=== PATIENT | female | born 1985 | race Caucasian/White ===

== ENCOUNTER 2017-04-20 16:01 | Emergency (ER) | payer OTHER ==
[2017-04-20 16:20] VITALS: BP 120/52
--- NOTE | 2017-04-20 16:42 | UC ---
Hand/Wrist HPI - HPI Summary HPI Summary: FOUR WEEKS OF BILATERAL HAND PAIN, WORSENING OVER TIME. HISTORY OF TENDONITIS, PLANTAR FASCIITIS. BOUGHT NEW HOUSE AND HAS BEEN DOING FREQUENT HOME REPAIRS, PAIN WORSENING. - History Of Current Complaint Chief Complaint: UCUpperExtremity Stated Complaint: HAND COMPLAINT Time Seen by Provider: 04/20/17 16:08 Hx Obtained From: Patient Hx Last Menstrual Period: 03/26/17 Onset/Duration: Gradual Onset, Lasting Weeks, Still Present Severity Initially: Mild Severity Currently: Moderate Character Of Pain: Dull, Aching Aggravating Factor(s): Movement, Lifting, Flexion, Extension Alleviating: Nothing Associated Signs And Symptoms: Positive: Negative Related History: Dominant Hand Left - Allergies/Home Medications Allergies/Adverse Reactions: Allergies Allergy/AdvReac Type Severity Reaction Status Date / Time No Known Allergies Allergy Verified 04/20/17 16:07 Home Medications: Home Medications Amoxicillin CAP* [Amoxicillin 500 MG CAP*] 2 cap BID 04/20/17 [History Confirmed 04/20/17] Levofloxacin TAB* [Levaquin TAB*] 500 mg PO BID 04/20/17 [History Confirmed ] Pantoprazole TAB (NF) [Protonix TAB (NF)] 40 mg PO BID 04/20/17 [History Confirmed 04/20/17] PMH/Surg Hx/FS Hx/Imm Hx Previously Healthy: Yes Cardiovascular History Of: Reports: Hypertension - not on meds - Surgical History Surgical History: None - Family History Known Family History: Negative: Blood Disorder - Social History Occupation: Unemployed Lives: With Family Alcohol Use: Occasionally Substance Use Type: Marijuana Substance Use Comment - Amount & Last Used: "here and there, occasionally" Smoking Status (MU): Current Every Day Smoker Amount Used/How Often: 1/2 ppd Cessation Counseling: Patient Advised to Stop - Immunization History Most Recent Influenza Vaccination: 2016 Most Recent Tetanus Shot: UTD Most Recent Pneumonia Vaccination: NONE Review of Systems Constitutional: Negative Skin: Negative Eyes: Negative ENT: Negative Respiratory: Negative Cardiovascular: Negative Gastrointestinal: Negative Genitourinary: Negative Motor: Negative Neurovascular: Negative Musculoskeletal: Arthralgia, Myalgia Neurological: Negative Psychological: Negative All Other Systems Reviewed And Are Negative: Yes Physical Exam Triage Information Reviewed: Yes Appearance: Well-Appearing, No Pain Distress, Well-Nourished Vital Signs: Initial Vital Signs Temp 98.9 F 04/20/17 16:10 Pulse 88 04/20/17 16:10 Resp 16 04/20/17 16:10 BP 120/52 04/20/17 16:10 Pulse Ox 100 04/20/17 16:10 Vital Signs Reviewed: Yes Eye Exam: Normal ENT Exam: Normal ENT: Positive: Normal ENT inspection, Hearing grossly normal, TMs normal Dental Exam: Normal Neck exam: Normal Neck: Positive: Supple, Nontender Respiratory Exam: Normal Respiratory: Positive: Chest non-tender, Lungs clear, Normal breath sounds, No respiratory distress, No accessory muscle use Cardiovascular Exam: Normal Cardiovascular: Positive: RRR, No Murmur, Pulses Normal Abdominal Exam: Normal Musculoskeletal: Positive: Strength Intact, ROM Intact, No Edema, Other: - BILATERAL POSITIVE DEQUAIRVAINS TEST Neurological Exam: Normal Psychological Exam: Normal Skin Exam: Normal Hand/Wrist Course/Dx - Differential Dx/Diagnosis Differential Diagnosis/HQI/PQRI: Carpal Tunnel Syndrome, Sprain, Strain, Tenosynovitis Provider Diagnoses: BILATERAL WRIST PAIN/STRAIN Discharge - Discharge Plan Condition: Stable Disposition: HOME Patient Education Materials: De Quervain Disease (ED), Wrist Sprain (ED) Referrals: Rajesh Matamoros MD [Medical Doctor] - Eladio Centeno MD [Medical Doctor] - Additional Instructions: PHYSICAL THERAPY REFERRAL: You have been prescribed physical therapy. Treatments may include stretching, exercise, application of heat or cold, and other modalities. After an injury, PT can reduce swelling and pain. In recovery, PT is used to restore mobility and strength. Your specific treatment goals are: Reduction of Swelling (EGS, US, ice as needed) ___X__ Pain Reduction (EGS, US, ice as needed) TENS Pack Fitting and Instruction Wound Hydrotherapy ____X_ Preservation of Mobility __X___ Scientologist of Mobility ___X__ Strength Scientologist ___X__ Work or Sports Hardening This instruction sheet also serves as your PHYSICAL THERAPY REFERRAL! Please take it with you to the therapist, so he/she will be aware of your diagnosis and treatment plan. You may see the physical therapist of your choice for these treatments, but may wish to check with your insurance to be sure the provider you select is covered. It's important to see the doctor to whom you have been referred for follow up.
== END 2017-04-20 16:48 | disposition home or self-care (01) ==
LOC: UCCORT 16:01
DX: S66.911A Strain of unspecified muscle, fascia and tendon at wrist and hand level, right hand, initial encounter (principal); S66.912A Strain of unspecified muscle, fascia and tendon at wrist and hand level, left hand, initial encounter; X58.XXXA Exposure to other specified factors, initial encounter; Y93.H3 Activity, building and construction; Y92.009 Unspecified place in unspecified non-institutional (private) residence as the place of occurrence of the external cause; I10 Essential (primary) hypertension; F17.210 Nicotine dependence, cigarettes, uncomplicated
CPT/HCPCS: 99203; G0463

== ENCOUNTER 2017-06-23 14:46 | Emergency (ER) | payer OTHER ==
[2017-06-23 15:05] VITALS: BP 129/68
--- NOTE | 2017-06-23 15:05 | ED ---
HPI Chest Pain - HPI Summary HPI Summary: 32 year old female presents with complains RUQ pain and epigastric pain. I am very concerned of [place] vs Acute cholycystitis. - History of Current Complaint Chief Complaint: UCGeneralIllness - Allergy/Home Medications Allergies/Adverse Reactions: Allergies Allergy/AdvReac Type Severity Reaction Status Date / Time No Known Allergies Allergy Verified 06/23/17 14:59 Home Medications: Home Medications NK [No Home Medications Reported] 06/23/17 [History Confirmed 06/23/17] PMH/Surg Hx/FS Hx/Imm Hx Cardiovascular History: Reports: Hx Hypertension - not on meds - Surgical History Surgery Procedure, Year, and Place: upper/lower endo's Infectious Disease History: No Infectious Disease History: Denies: Traveled Outside the [place] in Last 30 Days - Family History Known Family History: Negative: Blood Disorder - Social History Alcohol Use: Occasionally Substance Use Type: Reports: Marijuana Substance Use Comment - Amount & Last Used: "here and there, occasionally" Smoking Status (MU): Light Every Day Tobacco Smoker Type: Cigarettes Amount Used/How Often: < 1/2 ppd Review of Systems Constitutional: Negative Positive: Chest Pain Positive: Abdominal Pain All Other Systems Reviewed And Are Negative: Yes Physical Exam Triage Information Reviewed: Yes Vital Signs On Initial Exam: Initial Vitals Temp Pulse Resp BP Pulse Ox 36.9 C 94 16 129/68 99 06/23/17 14:55 06/23/17 14:55 06/23/17 14:55 06/23/17 14:55 06/23/17 14:55 Respiratory/Lung Sounds: Positive: Clear to Auscultation Cardiovascular: Positive: Normal Abdomen Description: Positive: Other: - (+) rutledge sign Diagnostics - Vital Signs Vital Signs Temp Pulse Resp BP Pulse Ox 06/23/17 14:55 36.9 C 94 16 129/68 99 - Laboratory Lab Statement: Any lab studies that have been ordered have been reviewed, and results considered in the medical decision making process. Chest Pain Course/Dx - Diagnoses Provider Diagnoses: RUQ abdominal pain Discharge - Discharge Plan Condition: Good Disposition: AGAINST MEDICAL ADVICE Referrals: London Cai PA [Primary Care Provider] -
== END 2017-06-23 15:00 | disposition left against medical advice (07) ==
LOC: UCCORT 14:46
DX: R10.11 Right upper quadrant pain (principal); R10.13 Epigastric pain; I10 Essential (primary) hypertension; F12.90 Cannabis use, unspecified, uncomplicated; F17.210 Nicotine dependence, cigarettes, uncomplicated
CPT/HCPCS: 93005; 99212; G0463

== ENCOUNTER 2017-06-30 09:59 | Emergency (ER) | payer OTHER ==
[2017-06-30 10:40] VITALS: BP 128/56
--- NOTE | 2017-06-30 10:44 | UC ---
Upper Extremity HPI - HPI Summary HPI Summary: right arm injury while play wrestling her . she has pain in the right shoulder and is unable to move it much without severe pain. - History of Current Complaint Chief Complaint: UCUpperExtremity Stated Complaint: RIGHT SHOULDER INJURY Time Seen by Provider: 06/30/17 10:25 Hx Obtained From: Patient Hx Last Menstrual Period: 06/19/17 Onset/Duration: Sudden Onset, Lasting Days Severity Initially: Severe Severity Currently: Severe Location Of Pain: Is Discrete @ Aggravating Factor(s): Movement, Lifting, Extension, Internal/External Rotation Alleviating Factor(s): Rest Associated Signs And Symptoms: Positive: Weakness Related History: Dominant Hand Right - Allergies/Home Medications Allergies/Adverse Reactions: Allergies Allergy/AdvReac Type Severity Reaction Status Date / Time No Known Allergies Allergy Verified 06/30/17 10:23 Home Medications: Home Medications Naproxen [Naproxen 500 mg] 500 mg PO BID PRN 06/30/17 [History Confirmed ] PMH/Surg Hx/FS Hx/Imm Hx Previously Healthy: Yes - Surgical History Surgical History: Yes Surgery Procedure, Year, and Place: BLADDER SURGRY AGE 7 - Family History Known Family History: Positive: Other - no related FH of shoulder disease. Negative: Blood Disorder - Social History Alcohol Use: Occasionally Substance Use Type: Marijuana Substance Use Comment - Amount & Last Used: "here and there, occasionally" Smoking Status (MU): Current Every Day Smoker Type: Cigarettes Amount Used/How Often: 1/2 ppd Household Exposure Type: Cigarettes - Immunization History Most Recent Influenza Vaccination: 2016 Most Recent Tetanus Shot: UTD Most Recent Pneumonia Vaccination: NONE Review of Systems Musculoskeletal: Arthralgia All Other Systems Reviewed And Are Negative: Yes Physical Exam Triage Information Reviewed: Yes Appearance: Well-Appearing, No Pain Distress, Well-Nourished Vital Signs: Initial Vital Signs Temp 98.7 F 06/30/17 10:24 Pulse 88 06/30/17 10:24 Resp 18 06/30/17 10:24 BP 128/56 06/30/17 10:24 Pulse Ox 99 06/30/17 10:24 Vital Signs Reviewed: Yes Eye Exam: Normal ENT Exam: Normal Neck exam: Normal Respiratory Exam: Normal Cardiovascular Exam: Normal Abdominal Exam: Normal Musculoskeletal Exam: Other - right arm anterior shoulder tenderness. There is pain with abduction. There is good strength and minimal pain with forced forearm internal and external rotation. Neurological Exam: Normal Psychological Exam: Normal Skin Exam: Normal Upper Extremity Course/Dx - Course Course Of Treatment: she went to the ED and had x rays. she remains in pain. - Differential Dx/Diagnosis Provider Diagnoses: right shoulder injury. Discharge - Discharge Plan Condition: Good Disposition: HOME Prescriptions: traMADol TAB* [Ultram*] 50 mg PO Q8H PRN #20 tab MDD 3 PRN Reason: Pain Patient Education Materials: Shoulder Pain (ED) Referrals: London Cai PA [Primary Care Provider] - Rajesh Matamoros MD [Medical Doctor] -
== END 2017-06-30 11:08 | disposition home or self-care (01) ==
LOC: UCCORT 09:59
DX: S49.91XA Unspecified injury of right shoulder and upper arm, initial encounter (principal); X58.XXXA Exposure to other specified factors, initial encounter; Y93.83 Activity, rough housing and horseplay; Y92.9 Unspecified place or not applicable; F17.210 Nicotine dependence, cigarettes, uncomplicated
CPT/HCPCS: 99212; G0463

== ENCOUNTER 2017-12-04 15:07 | Emergency (ER) | payer OTHER ==
[2017-12-04 15:34] VITALS: BP 137/83
--- NOTE | 2017-12-04 15:34 | UC ---
UC Dental HPI - HPI Summary HPI Summary: 32 YEAR OLD FEMALE PRESENTS WITH THRUSH. - History of Current Complaint Chief Complaint: UCGeneralIllness Stated Complaint: ? THRUSH Time Seen by Provider: 12/04/17 15:33 Hx Obtained From: Patient Hx Last Menstrual Period: 12/04/17 Onset/Duration: Sudden Onset Severity: Moderate Pain Scale Used: 0-10 Numeric - 5 - Allergies/Home Medications Allergies/Adverse Reactions: Allergies Allergy/AdvReac Type Severity Reaction Status Date / Time No Known Allergies Allergy Verified 12/04/17 15:33 PMH/Surg Hx/FS Hx/Imm Hx Previously Healthy: Yes - Surgical History Surgical History: Yes Surgery Procedure, Year, and Place: BLADDER SURGRY AGE 7. fundiplocation - Family History Known Family History: Positive: Other - no related FH of shoulder disease. Negative: Blood Disorder - Social History Alcohol Use: None Substance Use Type: None Substance Use Comment - Amount & Last Used: "here and there, occasionally" Smoking Status (MU): Current Every Day Smoker Type: Cigarettes Amount Used/How Often: 1/2 ppd Household Exposure Type: Cigarettes - Immunization History Most Recent Influenza Vaccination: 2016 Most Recent Tetanus Shot: UTD Most Recent Pneumonia Vaccination: NONE Review of Systems Constitutional: Negative Skin: Negative Eyes: Negative ENT: Other - THRUSH Respiratory: Negative Cardiovascular: Negative Gastrointestinal: Negative Genitourinary: Negative Motor: Negative Neurovascular: Negative Musculoskeletal: Negative Neurological: Negative Psychological: Negative All Other Systems Reviewed And Are Negative: Yes Physical Exam Triage Information Reviewed: Yes Vital Signs: Initial Vital Signs Temp 36.6 C 12/04/17 15:29 Pulse 83 12/04/17 15:29 Resp 16 12/04/17 15:29 BP 137/83 12/04/17 15:29 Pulse Ox 100 12/04/17 15:29 Vital Signs Reviewed: Yes Eye Exam: Normal ENT: Positive: Other - THRUSH Dental Exam: Normal Neck exam: Normal Neck: Positive: 1 Respiratory Exam: Normal Cardiovascular Exam: Normal Abdominal Exam: Normal Musculoskeletal Exam: Normal Neurological Exam: Normal Psychological Exam: Normal Skin Exam: Normal Dental Complaint Course/Dx - Differential Dx/Diagnosis Provider Diagnoses: THRUSH. GEOGRAPHICAL TONGUE Discharge - Discharge Plan Condition: Stable Disposition: HOME Prescriptions: Fluconazole [Diflucan 150 MG (NF)] 150 mg PO ONCE #1 tab Magic M W2 Lexx/Maal/Nyst/Lido* 5 ml SWISH SPIT QID PRN #120 ml PRN Reason: Pain Nystatin SUSPENSION ORAL SYR* 10 ml PO QID #200 ml Patient Education Materials: Oral Candidiasis (ED) Referrals: London Cai PA [Primary Care Provider] -
== END 2017-12-04 15:50 | disposition home or self-care (01) ==
LOC: UCCORT 15:07
DX: B37.9 Candidiasis, unspecified (principal); K14.1 Geographic tongue; F17.210 Nicotine dependence, cigarettes, uncomplicated
CPT/HCPCS: 99212; G0463

== ENCOUNTER 2020-02-11 09:09 | Emergency (ER) | payer OTHER ==
[2020-02-11 09:22] VITALS: BP 126/60
--- NOTE | 2020-02-11 09:30 | UC ---
Throat Pain/Nasal López HPI - HPI Summary HPI Summary: 34-year-old woman comes in with a chief complaint of sinusitis symptoms for 2-3 days. Sinus pressure yellow rhinorrhea. She has been using [id number] medicines with minimal relief. Does have postnasal drip that gives her mild sore throat. No shortness of breath. - History of Current Complaint Chief Complaint: UCGeneralIllness Stated Complaint: SINUS CONCERN Time Seen by Provider: 02/11/20 09:15 Hx Last Menstrual Period: 01/31/20 Pain Intensity: 7 - Allergies/Home Medications Allergies/Adverse Reactions: Allergies Allergy/AdvReac Type Severity Reaction Status Date / Time No Known Allergies Allergy Verified 02/11/20 09:22 Home Medications: Home Medications Amoxicillin PO (*) [Amoxicillin 400 MG/5 ML SUSP*] 880 mg PO BID #220 ml [Rx] PMH/Surg Hx/FS Hx/Imm Hx Previously Healthy: Yes - Surgical History Surgical History: Yes Surgery Procedure, Year, and Place: BLADDER SURGRY AGE 7. fundiplocation . hiatal hernia repair-2017 - Family History Known Family History: Positive: Other - no related FH of shoulder disease. Negative: Blood Disorder - Social History Alcohol Use: None Substance Use Type: None Substance Use Comment - Amount & Last Used: "here and there, occasionally" Smoking Status (MU): Current Every Day Smoker Type: Cigarettes Amount Used/How Often: 1/2 ppd Household Exposure Type: Cigarettes - Immunization History Most Recent Influenza Vaccination: 2016 Most Recent Tetanus Shot: UTD Most Recent Pneumonia Vaccination: NONE Review of Systems All Other Systems Reviewed And Are Negative: Yes Constitutional: Positive: Other - SEE HPI Skin: Positive: Negative Eyes: Positive: Negative ENT: Positive: Sore Throat, Nasal Discharge, Sinus Congestion, Sinus Pain/ Tenderness Respiratory: Positive: Cough Cardiovascular: Positive: Negative Gastrointestinal: Positive: Negative Motor: Positive: Negative Neurovascular: Positive: Negative Musculoskeletal: Positive: Negative Neurological/Mental Status: Positive: Negative Psychological: Positive: Negative Is Patient Immunocompromised?: No Physical Exam Triage Information Reviewed: Yes Appearance: No Pain Distress, Well-Nourished, Ill-Appearing - MILD Vital Signs: Initial Vital Signs Temp 97.9 F 02/11/20 09:17 Pulse 84 02/11/20 09:17 Resp 14 02/11/20 09:17 BP 126/60 02/11/20 09:17 Pulse Ox 100 02/11/20 09:17 Vital Signs Reviewed: Yes Eye Exam: Normal Eyes: Positive: Conjunctiva Clear ENT: Positive: Pharyngeal erythema, Nasal congestion, Nasal drainage, TMs normal Neck: Positive: Supple Respiratory: Positive: Lungs clear, Normal breath sounds, No respiratory distress Cardiovascular: Positive: RRR Musculoskeletal: Positive: Strength Intact, ROM Intact Neurological: Positive: Alert, Muscle Tone Normal Psychological: Positive: Age Appropriate Behavior Skin Exam: Normal Throat Pain/Nasal Course/Dx - Course Course Of Treatment: DISCUSSED VIRAL VERSES BACTERIAL INFECTIONS AND THE ROLE OF ANTIBIOTICS. THE PATIENT PREFERS TO BE ON ANTIBIOTICS AT THIS TIME. - Differential Dx/Diagnosis Provider Diagnosis: Sinusitis Discharge ED - Sign-Out/Discharge Documenting (check all that apply): Patient Departure All imaging exams completed and their final reports reviewed: No Studies - Discharge Plan Condition: Stable Disposition: HOME Prescriptions: Amoxicillin PO (*) [Amoxicillin 400 MG/5 ML SUSP*] 880 mg PO BID #220 ml Patient Education Materials: Sinusitis (ED) Forms: *Work Release Referrals: London Cai PA [Primary Care Provider] - Additional Instructions: FOLLOW UP WITH YOUR DOCTOR IF NOT COMPLETELY IMPROVED. GET REEVALUATED SOONER IF NOT IMPROVED OR WORSE OR ANY QUESTIONS OR CONCERNS. - Billing Disposition and Condition Condition: STABLE Disposition: Home
== END 2020-02-11 09:37 | disposition home or self-care (01) ==
LOC: UCCORT 09:09
DX: J32.9 Chronic sinusitis, unspecified (principal); R05 Cough; F17.210 Nicotine dependence, cigarettes, uncomplicated
CPT/HCPCS: 99212; G0463